=== PATIENT | female | born 2000 | race Caucasian/White ===

== ENCOUNTER 2024-07-10 20:00 | Outpatient (CLI) | payer BC, SELFPAY | END 2024-07-10 23:59 | disposition home or self-care (01) | LOC: LAB.DROPOF 20:01 | PROVIDERS: PCP Student in an Organized Health Care Education/Training Program; Visit Provider Student in an Organized Health Care Education/Training Program | DX: N39.0 Urinary tract infection, site not specified (principal) | CPT/HCPCS: 87086; 87088; 87186 ==

== ENCOUNTER 2024-07-11 15:26 | Emergency (ER) | payer BC, SELFPAY ==
[2024-07-11 15:30] VITALS: BP 159/99; PULSE 118; RESP 18; TEMP 37; O2SAT 100; BMI 35.3
--- NOTE | 2024-07-11 15:40 | ED_ITS ---
<Statement entered by Santana Robison MD - 07/11/24 23:42> I was consulted by the TAYA, and we discussed the complexity of the problems being addressed. I approved the treatment and management plan for this patient's care in the emergency department, thus performing a substantive portion of the medical decision making. Santana Robison MD Discharge Plan Disposition Patient Disposition: Home, Self-Care Condition: Good Prescriptions Prescriptions: New sulfamethoxazole-trimethoprim [Bactrim DS] 800-160 mg tablet 1 tab PO BID 5 Days Qty: 10 0RF ondansetron 4 mg tablet,disintegrating 4 mg PO QID PRN (Reason: nausea and vomiting) Qty: 10 0RF No Action nitrofurantoin monohyd/m-cryst 100 mg capsule 100 mg PO Q12H 7 Days Qty: 14 0RF Rx Instructions: must administer with a meal/food Referrals Follow up/Referrals: Provider,Referral, [Primary Care Provider, Medical] - See instructions Activity Restrictions/Add. Instructions Additional Instructions/Restrictions: I have sent in a prescription to your pharmacy for antibiotics and for nausea medicine. Please make sure to take your medications till its gone. If you have persistent new or worsening signs or symptoms please follow-up with your PCP or return to the ER as needed. Clinical Impressions Clinical Impression: Pyelonephritis Print Language Print Language: Tunisian Discharge ED Provider: Santana Robison General Adult HPI <TRAVIS Trotter - Last Filed: 07/11/24 17:22> General Chief complaint: Abdominal Pain Stated complaint: Right side pain above waist line area Time Seen by Provider: 07/11/24 15:40 Mode of Arrival: Ambulatory Source of Information: Patient Description of Symptoms (Recalled from ER Triage Doc. by RN): PT presents for evaluation of pain in flank/right side mid abd. PT stated she was dx of UTI last night 07/10/2024 at a [facility]. Started abx last night as well. Denies trouble urination and claims urine is yellow in color, per test at [facility] last night blood was detected in urine. History of Present Illness HPI narrative: Patient presents for 3 days of right upper quadrant and right flank pain. Patient's symptoms began 3 days ago and have been unaffected by food and there is no position of comfort there are no aggravating or relieving factors pain does not radiate. She denies any fever chills hemoptysis hematochezia melena hematemesis hematuria dysuria. She reports that she went to the [facility] last night where she was diagnosed with UTI however despite antibiotics (Macrobid) she reports no improvement in her pain. Related Data Previous Rx's ?Medication ?Instructions ?Recorded nitrofurantoin 100 mg PO Q12H 7 days #14 ca ps 07/10/24 monohydrate/macrocrystals 100 mg capsule ondansetron 4 mg disintegrating 4 mg PO QID PRN nausea and 07/11/24 tablet vomiting #10 tabs sulfamethoxazole 800 1 tab PO BID 5 days #10 tabs 07/11/24 mg-trimethoprim 160 mg tablet (Bactrim DS) Allergies Allergy/AdvReac Type Severity Reaction Status Date / Time No Known Allergies Allergy Unverified 07/10/24 18:21 [facility] <TRAVIS Trotter - Last Filed: 07/11/24 17:22> [facility] Disclaimer: The information contained in this section may have been updated after the patient was seen, as this information can be updated by other users. Medical History (Updated 07/11/24 @ 16:56 by TRAVIS Trotter) Cyst of left breast Surgical History (Updated 07/10/24 @ 18:22 by Estela Gonzales MA) H/O breast surgery Social History (Updated 07/11/24 @ 09:52 by TRAVIS Hackett) Smoking Status: Never smoker alcohol intake: never current occupational status: unemployed Travel in the last 8 weeks?: None Have you lived/traveled outside US in past 30 days?: No Contact w/someone who lives/traveled outside US past 30 days?: No Exposure to someone with infectious disease in past 14 days?: No Do you have a fever (greater than 100.4 F or 38 C)?: No Have you tested positive for COVID-19?: No Exposed to someone with COVID-19 in past 14 days?: No Do you have a sore throat?: No Do you have a cough?: No Do you have any weakness?: No Do you have any diarrhea?: No Are you experiencing any unusual bleeding?: No Do you have any muscle aches/pain?: No Do you have any abdominal pain?: Yes Are you experiencing loss of taste or smell?: No <TRAVIS Trotter - Last Filed: 07/11/24 17:22> ROS Obtained: Yes Systems reviewed as appropriate & no additional complaints except as documented Physical Exam <TRAVIS Trotter - Last Filed: 07/11/24 17:22> General General appearance: alert and in no apparent distress Respiratory Respiratory exam: Present normal lung sounds bilaterally Cardiovascular Cardiovascular exam: Present regular rate Neurological Exam Neurological exam: Present alert and oriented X3 Medical Decision Making <TRAVIS Trotter - Last Filed: 07/11/24 17:22> Medical Records Medical records reviewed: Yes I reviewed the patient's medical records. Screening: Per USPSTF and CDC recommendations, given the prevalence of disease in our region, it is our hospital?s policy to screen for HIV and viral Hepatitis for all patients aged 18 and over and those with ongoing risk factors. Kevin Inquiry Pt receiving controlled substance: No Vital Signs: 07/11/24 15:30 07/11/24 16:03 07/11/24 16:30 Temperature 98.6 F Temperature Source Oral Pulse Rate 98 H 103 H Pulse Rate [Right] 118 H Respiratory Rate 18 Blood Pressure 133/80 132/74 Blood Pressure [Right Arm] 159/99 H Blood Pressure Mean [Right Arm] 119 02 Sat by Pulse Oximetry 100 100 100 Oxygen Delivery Method Room Air 07/11/24 17:09 Temperature 97.8 F Temperature Source Pulse Rate 109 H Pulse Rate [Right] Respiratory Rate 18 Blood Pressure 125/72 Blood Pressure [Right Arm] Blood Pressure Mean [Right Arm] 02 Sat by Pulse Oximetry Oxygen Delivery Method Room Air Lab Data Lab results reviewed: Yes I reviewed the patient's lab results. Lab Results 07/11/24 15:41: Urine Color Yellow, Urine Appearance Sl cloudy, Urine pH 6.5, Ur Specific Dumont 1.010, Urine Protein Negative, Urine Glucose (UA) Negative, Urine Ketones Negative, Urine Blood Negative, Urine Nitrate Negative, Urine Bilirubin Negative, Urine Urobilinogen 0.2, Ur Leukocyte Esterase 2+ A, Urine RBC 3-5, Urine WBC 20-50, Ur Squamous Epith Cells 20-50, Urine Bacteria 4+, Urine HCG, Qual Negative 07/11/24 16:04: WBC 11.0 H, RBC 4.98, Hgb 15.0, Hct 43.4, MCV 87.1, MCH 30.1, MCHC 34.6, RDW 11.7, Plt Count 361, MPV 9.6, Neut % (Auto) 64.2, Lymph % (Auto) 27.8, Geary % (Auto) 5.9, Eos % (Auto) 1.3, Baso % (Auto) 0.5, Neut # (Auto) 7.0, Lymph # (Auto) 3.1, Geary # (Auto) 0.7, Eos # (Auto) 0.1, Baso # (Auto) 0.1, Sodium 139, Potassium 3.7, Chloride 106, Carbon Dioxide 24, Anion Gap 12.7, BUN 9, Creatinine 0.90, Estimated Creat Clear 150, Estimated GFR 76, Est GFR ( Amer) 92, Glucose 99, Lactate 1.1, Calcium 9.9, Magnesium 1.7, Total Bilirubin 0.6, AST 25, ALT 21, Alkaline Phosphatase 87, Total Protein 8.4 H, Albumin 4.9, Globulin 3.5 H, Albumin/Globulin Ratio 1.4, Lipase 52, Procalcitonin < 0.030 07/11/24 16:04 07/11/24 16:04 Orders (Tests/Meds): ED MEDICATIONS Discontinued Medications Generic Name Dose Route Start Last Admin Trade Name Paco PRN Reason Stop Dose Admin Acetaminophen 1,000 mg 07/11/24 15:53 07/11/24 16:06 Acetaminophen 500mg Tab PO 07/11/24 15:54 1,000 mg ONCE ONE Administration Sodium Chloride 1,000 mls @ 999 mls/hr 07/11/24 15:53 07/11/24 16:08 Sod Chlor 0.9% 1000ml Bag IV 07/11/24 16:53 999 mls/hr .Q1H1M ONE Administration Iopamidol 75 ml 07/11/24 16:27 07/11/24 16:31 Iopamidol-370 (76%);100ml Bottle IV 07/11/24 16:28 75 ml ONCE ONE Administration Ketorolac Tromethamine 15 mg 07/11/24 15:53 07/11/24 16:07 Ketorolac 30mg/Ml Vial IV 07/11/24 15:54 15 mg ONCE ONE Administration Ondansetron HCl 4 mg 07/11/24 15:53 07/11/24 16:07 Ondansetron 4mg/2ml Vial IV 07/11/24 15:54 4 mg ONCE ONE Administration Sodium Chloride 10 ml 07/11/24 16:27 07/11/24 16:31 Sodium Chloride 0.9% 10ml Syr (Rad Only) IV 08/10/24 16:26 10 ml NEEDED PRN Administration Maintain IV Site Trimethoprim/Sulfamethoxazole 1 each 07/11/24 16:53 07/11/24 17:04 Sulfa/Trimethoprim 1 Tablet PO 07/11/24 16:54 1 each ONCE ONE Administration ORDERS Category Date Time Status CT abdomen pelvis w con Stat Cat Scan 07/11/24 15:53 Completed POCUS Point of Care (ER Only) Stat Exams 07/11/24 15:53 Completed CBC w/Auto Diff [Complete Blood Count Auto Diff] Stat Lab 07/11/24 16:04 Completed CMP [Comprehensive Metabolic Panel] Stat Lab 07/11/24 16:04 Completed Lactic Acid Stat Lab 07/11/24 16:04 Completed Lipase Stat Lab 07/11/24 16:04 Completed Magnesium Stat Lab 07/11/24 16:04 Completed Procalcitonin Stat Lab 07/11/24 16:04 Completed Urinalysis and Microscopic Stat Lab 07/11/24 15:41 Completed Urine , HCG Qual. Stat Lab 07/11/24 15:41 Completed Medical Decision Narrative: In summary patient is a 23-year-old female who presents to the emergency department for evaluation of right upper quadrant and flank pain. Patient is initially normotensive with a blood pressure 155/99 tachycardic at 118 with soft body on the bedside monitor breathing 18 times a minute satting at 100% on room air upon arrival, with a temperature of 98.6. Physical exam is remarkable for CVA tenderness to percussion but abdomen is soft nontender no rebound or guarding no rigidity normal bowel sounds and negative Amador sign currently.. Differential diagnosis includes pyelonephritis versus cholelithiasis versus kidney stone versus enteritis etc. Initial workup will be conducted with hematologic labs urinalysis CT scan abdomen pelvis POCUS. Initial interventions include crystalloid bolus Tylenol Toradol Zofran continuous pulse oximetry and cardiac monitoring. Initial workup reviewed by me that her hematologic labs are nonactionable however urinalysis is consistent with pyuria and UTI and correlating with clinical exam likely uncomplicated pyelonephritis. My informal interpretation of her CT scan abdomen pelvis does not reveal any acute processes prior to radiology read.. Upon repeat evaluation patient reported complete resolution of her pain after initial intervention. Given this patient is appropriate for discharge with prescription for Bactrim with first dose given here, instructions to discontinue Macrobid, and strict return precautions. Santana Robison: Procedure performed was right upper quadrant ultrasound limited, procedure performed by me. Using curvilinear probe the right upper quadrant was transiently reviewed, no free fluid in Morison's pouch, no obvious hydronephrosis, no thickening of the gallbladder pericholecystic fluid or obvious cholelithiasis. Images were technically adequate and saved to a permanent archive and did necessitate further imaging. <Santana Robison MD - Last Filed: 07/11/24 16:45> Vital Signs: 07/11/24 15:30 07/11/24 16:03 07/11/24 16:30 Temperature 98.6 F Temperature Source Oral Pulse Rate 98 H 103 H Pulse Rate [Right] 118 H Respiratory Rate 18 Blood Pressure 133/80 132/74 Blood Pressure [Right Arm] 159/99 H Blood Pressure Mean [Right Arm] 119 02 Sat by Pulse Oximetry 100 100 100 Oxygen Delivery Method Room Air 07/11/24 17:09 Temperature 97.8 F Temperature Source Pulse Rate 109 H Pulse Rate [Right] Respiratory Rate 18 Blood Pressure 125/72 Blood Pressure [Right Arm] Blood Pressure Mean [Right Arm] 02 Sat by Pulse Oximetry Oxygen Delivery Method Room Air Lab Data Lab Results 07/11/24 15:41: Urine Color Yellow, Urine Appearance Sl cloudy, Urine pH 6.5, Ur Specific Dumont 1.010, Urine Protein Negative, Urine Glucose (UA) Negative, Urine Ketones Negative, Urine Blood Negative, Urine Nitrate Negative, Urine Bilirubin Negative, Urine Urobilinogen 0.2, Ur Leukocyte Esterase 2+ A, Urine RBC 3-5, Urine WBC 20-50, Ur Squamous Epith Cells 20-50, Urine Bacteria 4+, Urine HCG, Qual Negative 07/11/24 16:04: WBC 11.0 H, RBC 4.98, Hgb 15.0, Hct 43.4, MCV 87.1, MCH 30.1, MCHC 34.6, RDW 11.7, Plt Count 361, MPV 9.6, Neut % (Auto) 64.2, Lymph % (Auto) 27.8, Geary % (Auto) 5.9, Eos % (Auto) 1.3, Baso % (Auto) 0.5, Neut # (Auto) 7.0, Lymph # (Auto) 3.1, Geary # (Auto) 0.7, Eos # (Auto) 0.1, Baso # (Auto) 0.1, Sodium 139, Potassium 3.7, Chloride 106, Carbon Dioxide 24, Anion Gap 12.7, BUN 9, Creatinine 0.90, Estimated Creat Clear 150, Estimated GFR 76, Est GFR ( Amer) 92, Glucose 99, Lactate 1.1, Calcium 9.9, Magnesium 1.7, Total Bilirubin 0.6, AST 25, ALT 21, Alkaline Phosphatase 87, Total Protein 8.4 H, Albumin 4.9, Globulin 3.5 H, Albumin/Globulin Ratio 1.4, Lipase 52, Procalcitonin < 0.030 Orders (Tests/Meds): ED MEDICATIONS Discontinued Medications Generic Name Dose Route Start Last Admin Trade Name Paco PRN Reason Stop Dose Admin Acetaminophen 1,000 mg 07/11/24 15:53 07/11/24 16:06 Acetaminophen 500mg Tab PO 07/11/24 15:54 1,000 mg ONCE ONE Administration Sodium Chloride 1,000 mls @ 999 mls/hr 07/11/24 15:53 07/11/24 16:08 Sod Chlor 0.9% 1000ml Bag IV 07/11/24 16:53 999 mls/hr .Q1H1M ONE Administration Iopamidol 75 ml 07/11/24 16:27 07/11/24 16:31 Iopamidol-370 (76%);100ml Bottle IV 07/11/24 16:28 75 ml ONCE ONE Administration Ketorolac Tromethamine 15 mg 07/11/24 15:53 07/11/24 16:07 Ketorolac 30mg/Ml Vial IV 07/11/24 15:54 15 mg ONCE ONE Administration Ondansetron HCl 4 mg 07/11/24 15:53 07/11/24 16:07 Ondansetron 4mg/2ml Vial IV 07/11/24 15:54 4 mg ONCE ONE Administration Sodium Chloride 10 ml 07/11/24 16:27 07/11/24 16:31 Sodium Chloride 0.9% 10ml Syr (Rad Only) IV 08/10/24 16:26 10 ml NEEDED PRN Administration Maintain IV Site Trimethoprim/Sulfamethoxazole 1 each 07/11/24 16:53 07/11/24 17:04 Sulfa/Trimethoprim 1 Tablet PO 07/11/24 16:54 1 each ONCE ONE Administration ORDERS Category Date Time Status CT abdomen pelvis w con Stat Cat Scan 07/11/24 15:53 Completed POCUS Point of Care (ER Only) Stat Exams 07/11/24 15:53 Completed CBC w/Auto Diff [Complete Blood Count Auto Diff] Stat Lab 07/11/24 16:04 Completed CMP [Comprehensive Metabolic Panel] Stat Lab 07/11/24 16:04 Completed Lactic Acid Stat Lab 07/11/24 16:04 Completed Lipase Stat Lab 07/11/24 16:04 Completed Magnesium Stat Lab 07/11/24 16:04 Completed Procalcitonin Stat Lab 07/11/24 16:04 Completed Urinalysis and Microscopic Stat Lab 07/11/24 15:41 Completed Urine , HCG Qual. Stat Lab 07/11/24 15:41 Completed Medical Decision Narrative: In summary patient is a 23-year-old female who presents to the emergency department for evaluation of right upper quadrant and flank pain. Patient is initially normotensive with a blood pressure 155/99 tachycardic at 118 with soft body on the bedside monitor breathing 18 times a minute satting at 100% on room air upon arrival, with a temperature of 98.6. Physical exam is remarkable for CVA tenderness to percussion but abdomen is soft nontender no rebound or guarding no rigidity normal bowel sounds and negative Amador sign currently.. Differential diagnosis includes pyelonephritis versus cholelithiasis versus kidney stone versus enteritis etc. Initial workup will be conducted with hematologic labs urinalysis CT scan abdomen pelvis POCUS. Initial interventions include crystalloid bolus Tylenol Toradol Zofran continuous pulse oximetry and cardiac monitoring. Initial workup reviewed by me [hematologic labs are remarkable for... Imaging remarkable for... Urinalysis remarkable for]. Upon repeat evaluation [patient had acceptable resolution of symptoms, had persistent pain for which additional interventions were conducted (describe interventions), tolerated p.o., was ambulatory, etc.]. Given this [patient is appropriate for discharge at this time and will be discharged with a prescription for... The case was discussed with hospital medicine regarding management and they will admit the patient their service for continued evaluation at this time... Etc.] Santana Robison: Procedure performed was right upper quadrant ultrasound limited, procedure performed by me. Using curvilinear probe the right upper quadrant was transiently reviewed, no free fluid in Morison's pouch, no obvious hydronephrosis, no thickening of the gallbladder pericholecystic fluid or obvious cholelithiasis. Images were technically adequate and saved to a permanent archive and did necessitate further imaging. Critical Care <TRAVIS Trotter - Last Filed: 07/11/24 17:22> Critical Care Time Critical Care Time: No
[2024-07-11 15:45] LABS: Microscopic, Urine URINE MICROSCOPIC (MICROSCOPIC)
[2024-07-11 15:49] LABS: Appearance,Urine SL CLOUDY (Clear); Bilirubin,Urine Negative (Negative); Blood, Urine Negative (Negative); Color,Urine YELLOW (Yellow); Glucose,Urine (UA) Negative (Negative); Ketones,Urine Negative (Negative); Leukocyte Esterase,Urine 2+ (Negative); Nitrate,Urine Negative (Negative); PH,Urine 6.5 (5.0-8.5); Protein,Urine Negative (Negative); Urobilinogen,Urine 0.2 EU/dl (0.2)
--- NOTE | 2024-07-11 15:53 | CT_ITS ---
PROCEDURE INFORMATION: Exam: CT Abdomen And Pelvis With Contrast Exam date and time: 07/11/2024 4:24 PM Age: 23 years old Clinical indication: Abdominal pain; Additional info: Right upper quadrant and flank pain TECHNIQUE: Imaging protocol: Computed tomography of the abdomen and pelvis with contrast. Radiation optimization: All CT scans at this facility use at least one of these dose optimization techniques: automated exposure control; mA and/or kV adjustment per patient size (includes targeted exams where dose is matched to clinical indication); or iterative reconstruction. Contrast material: ISOVUE; Contrast volume: 75 ml; Contrast route: IV; COMPARISON: No relevant prior studies available. FINDINGS: Liver: Normal. No mass. Gallbladder and biliary ducts: Normal. No calcified stones. No ductal dilation. Pancreas: Normal. No ductal dilation. Spleen: Normal. No splenomegaly. Adrenal glands: Normal. No mass. Kidneys and ureters: Normal. No hydronephrosis. Stomach and bowel: Unremarkable. No obstruction. No mucosal thickening. Appendix: No evidence of appendicitis. Intraperitoneal space: Unremarkable. No free air. No significant fluid collection. Vasculature: Unremarkable. No abdominal aortic aneurysm. Lymph nodes: Some slightly prominent right lower quadrant mesenteric lymph nodes measuring up to 7 mm. Urinary bladder: Unremarkable as visualized. Reproductive: Likely involuting corpus luteum in the left ovary. Bones/joints: Unremarkable. No acute fracture. Soft tissues: Unremarkable. IMPRESSION: Some slightly prominent right lower quadrant mesenteric lymph nodes measuring up to 7 mm. Likely reactive and related to mild mesenteric adenitis.
[2024-07-11 16:03] VITALS: BP 133/80; PULSE 98; O2SAT 100
[2024-07-11 16:03] LABS: Urine Pregnancy, HCG Qual. Negative (Negative)
[2024-07-11] MEDS: ACETAMINOPHEN 500MG TAB 1000 MG PO (16:06)
[2024-07-11] MEDS: ONDANSETRON 4MG/2ML VIAL 4 MG IV (16:07)
[2024-07-11] MEDS: KETOROLAC 30MG/ML VIAL 15 MG IV (16:07)
[2024-07-11] MEDS: 0.9 % SODIUM CHLORIDE 1000ML 1,000 ML 999 ML IV (16:08)
[2024-07-11 16:14] LABS: Squamous Epithelial Cell,Urine 20-50 #/hpf (0-5); WBC,Urine 20-50 #/hpf (0-3)
[2024-07-11 16:15] LABS: Bacteria,Urine 4+ /lpf
[2024-07-11 16:23] LABS: Basophils # 0.1 K/mm3 (0-0.2); Basophils % 0.5 % (0.1-2.0); Eosinophils # 0.1 Kmm3 (0.0-0.4); Eosinophils % 1.3 % (0.1-12.0); Hematocrit 43.4 % (37.0-47.0); Immature Granulocytes # 0.03 10^3uL; Immature Granulocytes % 0.3 %; Lymphocytes # 3.1 K/mm3 (0.7-4.5); Lymphocytes % 27.8 % (10-50); Mean Corpuscular HGB Conc 34.6 g/dL (31.8-35.4); Mean Corpuscular Hemoglobin 30.1 pg (27.0-31.2); Mean Corpuscular Volume 87.1 fl (81-99); Mean Platelet Volume 9.6 fl (7.4-10.4); Monocytes # 0.7 K/mm3 (0.1-1.0); Monocytes % 5.9 % (1.7-9.3); Neutrophils % 64.2 % (37.0-80.0); Nucleated Red Blood Cells # 0 10^3/uL; Nucleated Red Blood Cells % 0 %; Platelet Count 361 K/mm3 (142-424); Red Blood Count 4.98 M/mm3 (4.20-5.40); Red Cell Distribution Width 11.7 % (11.5-17.5); Red Cell Distribution Width-SD 37.2 fL
[2024-07-11 16:27] LABS: Alanine Aminotransferase 21 U/L (12-78); Albumin Level 4.9 g/dl (3.5-5.0); Albumin/Globulin Ratio 1.4 (1.1-1.8); Alkaline Phosphatase 87 U/L (38-126); Anion Gap 12.7 mEq/L (5-15); Aspartate Amino Transferase 25 U/L (14-36); Bilirubin,Total 0.6 mg/dl (0.2-1.3); Blood Urea Nitrogen 9 mg/dl (7-17); Calcium 9.9 mg/dl (8.4-10.2); Carbon Dioxide 24 mmol/L (22.0-30.0); Chloride 106 mmol/L (98-107); Creatinine Clearance Estimated 150 mL/min (50-200); Estimated Glomerular Filt Rate 76 ml/min (>60); GFR (African American) 92 ML/MIN (>60); Globulin 3.5 g/dL (1.3-3.2); Glucose 99 mg/dl (74-100); Lipase 52 U/L (23-300); Magnesium 1.7 mg/dl (1.6-2.3); Potassium 3.7 mmoL/L (3.5-5.1); Sodium 139 mmol/L (136-145); Total Protein,Serum 8.4 g/dl (6.3-8.2)
[2024-07-11 16:30] VITALS: BP 132/74; PULSE 103; O2SAT 100
[2024-07-11] MEDS: IOPAMIDOL-370 (76%);100ML BOTTLE 75 ML IV (16:31)
[2024-07-11] MEDS: SODIUM CHLORIDE 0.9% 10ML SYR (RAD ONLY) 10 ML IV (16:31)
[2024-07-11 16:33] LABS: Lactic Acid 1.1 mmol/L (0.7-2.1)
[2024-07-11 16:45] LABS: Procalcitonin < 0.030 ng/mL (0.0-2.0)
[2024-07-11] MEDS: SULFA/TRIMETHOPRIM 1 TABLET 1 EACH PO (17:04)
[2024-07-11 17:09] VITALS: BP 125/72; PULSE 109; RESP 18; TEMP 36.6; O2SAT 99
== END 2024-07-11 17:11 | disposition home or self-care (01) ==
PROVIDERS: Physician Assistant; Emergency Provider Emergency Medicine
DX: N10 Acute pyelonephritis (principal); R10.11 Right upper quadrant pain; R10.31 Right lower quadrant pain; M54.59 Other low back pain
CPT/HCPCS: 74177; 80053; 81001; 81025; 83605; 83690; 83735; 84145; 85025; 96361; 96374; 96375; 99285; J1885; J2405; J7030; Q9967

== ENCOUNTER 2025-02-05 11:17 | Outpatient (CLI) | payer BC, SELFPAY ==
--- OUTSIDE RECORDS SUMMARY | 2025-02-05 11:19 | XMS_ITS ---
Author Organization Unknown ENCOUNTERS Encounter Performer Location Date Diagnosis Diagnosis Status Emergency [facility] [address] [place] [address] [id number] CANELO Pre Admit [facility] [address] [place] [address] [id number] *Note: Encounters from your own facility or health system may be excluded. Allergies, Adverse Reactions, Alerts Allergen Type Severity Identification Date Medications Name Date Quantity Days Supplied GPI Number
[2025-02-05 12:02] LABS: Hematocrit 39.2 % (37.0-47.0); Hemoglobin 13.3 g/dL (12.2-16.2); Immature Granulocytes % 0.4 %; Mean Corpuscular HGB Conc 33.9 g/dL (31.8-35.4); Mean Corpuscular Hemoglobin 30.5 pg (27.0-31.2); Mean Corpuscular Volume 89.9 fl (81-99); Nucleated Red Blood Cells % 0 %; Platelet Count 331 K/mm3 (142-424); Red Blood Count 4.36 M/mm3 (4.20-5.40); Red Cell Distribution Width-SD 40.4 fL; White Blood Count 8.4 K/mm3 (4.8-10.8)
[2025-02-05 13:20] LABS: RPR W/RFX Titers Nonreactive (Nonreactive)
[2025-02-05 13:41] LABS: Hepatitis C Ab Qual. W/ RFX NEGATIVE (Negative)
[2025-02-06 05:23] LABS: Hepatitis B Surface Antigen Negative (Negative)
[2025-02-06 11:14] LABS: Rubella Antibodies, IgG 2.93 index (Immune >0.99)
== END 2025-02-05 23:59 | disposition home or self-care (01) ==
LOC: LAB 11:17
PROVIDERS: PCP Family Medicine; Visit Provider Obstetrics & Gynecology
DX: Z34.90 Encounter for supervision of normal pregnancy, unspecified, unspecified trimester (principal); Z3A.00 Weeks of gestation of pregnancy not specified
CPT/HCPCS: 36415; 85025; 86592; 86762; 86787; 86803; 86850; 87340; 87389